=== PATIENT | female | born 1980 | race Caucasian/White ===

== ENCOUNTER 2021-05-01 14:00 | Emergency (ER) | payer MEDICARE, MEDICAID, SELFPAY ==
[2021-05-01 14:08] VITALS: BP 153/115; PULSE 88; RESP 20; TEMP 36.6; O2SAT 100
--- NOTE | 2021-05-01 14:13 | DI.RAD.S_ITS ---
PROCEDURE: XR CHEST 1V INDICATIONS: chest pain TECHNIQUE: One view of the chest was acquired. COMPARISON: [facility], , CHEST 2 VIEW, 10/04/2007, 20:12. FINDINGS: Surgical changes and devices: None. Lungs and pleura: Lungs are clear. No pleural effusions or pneumothorax. Mediastinum: Mediastinal contours appear normal. Heart size is normal. Bones and chest wall: No suspicious bony lesions. Overlying soft tissues appear unremarkable. IMPRESSION: Stable radiographic evaluation of the chest without acute cardiopulmonary abnormalities or focal airspace disease. Dictated by: Fran Veras M.D. on 05/01/2021 at 14:30 Approved by: Fran Veras M.D. on 05/01/2021 at 14:31
[2021-05-01 14:56] LABS: Alanine Aminotransferase 20 IU/L (<35); Albumin 4.4 g/dL (3.5-5.0); Albumin Globulin Ratio 1.6 (1.0-2.8); Alkaline Phosphatase 63 U/L (38-126); Aspartate Aminotransferase 22 IU/L (14-36); BUN Creatinine Ratio 14.8 (6-22); Bilirubin Total 0.4 mg/dL (0.2-1.3); Blood Urea Nitrogen 12 mg/dL (7-17); Calcium 9.3 mg/dL (8.4-10.2); Carbon Dioxide 23 mmol/L (22-32); Chloride 109 mmol/L (98-107); Creatine Kinase 81 U/L (30-135); Estimated Glomerular Filt Rate > 60.0 mL/min (>60); Globulin 2.8 g/dL (1.7-4.1); Glucose 91 mg/dL (70-100); HEMOLYSIS < 15 (0-50); Lipase 141 U/L (23-300); Potassium 3.4 mmol/L (3.4-5.1); Sodium 140 mmol/L (137-145); Total Protein 7.2 g/dL (6.3-8.2)
[2021-05-01 15:04] LABS: Add Manual Diff / Slide Review NO; Basophils Absolute Auto 100 /uL (0-100); Basophils Percent Auto 0.6 % (0-2); Eosinophils Absolute Auto 0 /uL (0-450); Eosinophils Percent Auto 0.4 % (2-4); Hemoglobin 13.1 g/dL (12.0-16.0); Lymphocytes Absolute Auto 2600 /uL (1100-4500); Lymphocytes Percent Auto 23.6 % (25-40); Mean Corpuscular HGB Conc 34.4 % (30-36); Mean Corpuscular Hemoglobin 27.8 PG (26-34); Mean Corpuscular Volume 80.7 fL (80-100); Monocytes Absolute Auto 600 /uL (0-900); Monocytes Percent Auto 5.3 % (3-14); Neutrophils Absolute Auto 7600 /uL (1500-7000); Neutrophils Percent Auto 70.1 % (50-75); Platelet Count 273 X10^3/uL (150-400); Red Blood Cell Count 4.71 X10^6/uL (4.0-5.2); Red Cell Distribution Width 17.1 % (11.6-14.8); White Blood Cell Count 10.9 X10^3/uL (4.5-11.0)
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
[2021-05-01 15:07] LABS: Troponin I < 0.012 ng/mL (0.01-0.034)
[2021-05-01 15:08] VITALS: PULSE 64; RESP 18; TEMP 36.6; O2SAT 98
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
[2021-05-01] MEDS: LORazepam 2 MG/ML INJ 1 MG IV (16:29)
[2021-05-01] MEDS: ONDANSETRON 4 MG/2 ML INJ IV (16:30)
[2021-05-01 16:48] VITALS: BP 111/71; PULSE 61; RESP 18; O2SAT 99
[2021-05-01 17:16] VITALS: BP 118/77; PULSE 63; RESP 23; O2SAT 98
== END 2021-05-01 17:17 | disposition home or self-care (01) ==
PROVIDERS: Emergency Provider Emergency Medicine; Family Provider Obstetrics & Gynecology; PCP Obstetrics & Gynecology
DX: F41.9 Anxiety disorder, unspecified (principal); R00.2 Palpitations; R11.0 Nausea
CPT/HCPCS: 71045; 80053; 82550; 83690; 84484; 85025; 93005; 93010; 96374; 96375; 99284; J2060; J2405